=== PATIENT | female | born 1990 | race Caucasian/White ===

== ENCOUNTER → 2017-02-25 | Outpatient (CLI) | payer BC, OTHER ==
--- NOTE | 2017-02-25 13:48 | MAMMOGRAPHY REPORT ---
ULTRASOUND OF RIGHT BREAST: 02/25/2017 CLINICAL HISTORY: The patient reports a palpable lump in the right upper outer quadrant. She has a s ling family history of breast cancer, with her mother diagnosed at age 40. COMPARISON: Comparison is made to exams dated: 05/02/2014 ultrasound, 04/19/2012 consultation, and 04/05 ultrasound - [facility]. TECHNIQUE: Real-time targeted ultrasound of the right breast was performed. FINDINGS: Real-time, high resolution targeted ultrasound was performed of the area of the palpable l ump pointed out by the patient, in the right breast at 11:00, centered around 6 cm from the nipple. Normal dense fibroglandular tissue is seen in this region, which likely accounts for the palpable fin ding. Incidentally noted on ultrasound are multiple small subcentimeter round/oval anechoic benign c ysts scattered within the fibroglandular tissue. In the right breast at approximately 10:00, 5 cm fr om the nipple, there is a lobulated hypoechoic mass which measures 1.1 x 0.5 x 1.4 cm. This is likel y incidentally noted and likely represents a fibroadenoma or possibly a complicated cyst. The findin g is indeterminate and ultrasound guided core needle biopsy is recommended for further evaluation. IMPRESSION: ACR BI-RADS CATEGORY 4A: LOW SUSPICION FOR MALIGNANCY - FOLLOW-UP RECOMMENDED Dense fibroglandular tissue seen within the region of the palpable right 11:00 breast lump, which lik denise accounts for the palpable finding. Incidental 1.4 cm hypoechoic mass in the right breast at appr oximately 10:00, which is indeterminate and ultrasound-guided core needle biopsy is recommended for f urther evaluation. This may represent a fibroadenoma or less likely fibrocystic changes. Also recom mend clinical follow-up for the palpable abnormality. A phone call was made to the physician's office to confirm faxed results were received. The patient was verbally notified of the results. She tentatively scheduled the biopsy before leaving the depart ment. Blossom Kidd M.D. /:02/25/2017 10:35:31 Attending Technologist: Keaton STOUT([place])(M), [facility] Precise Winder: Blossom Kidd MD, [facility] letter sent: Abnormal 4/5 BI-RADS Code: ACR BI-RADS Category 4A: Low Suspicion For Malignancy
== END | disposition home or self-care (01) ==
LOC: C.MAMM 08:53
PROVIDERS: ATTEND Nurse Practitioner Adult Health
DX: N63 Unspecified lump in breast (principal); Z80.3 Family history of malignant neoplasm of breast

== ENCOUNTER → 2017-03-03 | Outpatient (CLI) | payer BC, OTHER ==
--- NOTE | 2017-03-03 13:13 | Discharge Instructions ---
Discharge Instructions Procedure Procedure Date: Mar 03, 2017. Reason for visit: Right Mass. Discharge Discharge Date: Mar 03, 2017. Discharge Diagnosis: status post breast biopsy Instructions Activity Recommendations: Additional Limitations (see below) Return to School/Work: no limitations Recommended Home Diet: No Limitations Provider Instructions: ACTIVITY RECOMMENDATIONS: * No lifting, pushing, pulling or exercising the affected side for three days. RETURN TO SCHOOL/WORK: * You may return to work/school after the procedure, but do not perform any strenuous activities for 24 to 48 hours. MEDICATIONS: * Tylenol (two 325 mg) every four to six hours if needed for mild pain (if not allergic to Tylenol). DIET: * Resume previous diet. SPECIAL CARE INSTRUCTIONS: * Keep biopsy site dry for 24 hours. May shower after 24 hours, but do not soak (bathe) incision. * May remove Tegaderm (plastic patch) tomorrow AFTER showering. * Leave the steri-strips on for one week. Allow the steri-strips to fall off by themselves. If not off after one week, you may remove them. You may place a Bandaid crosswise over the strips, if desired. * Apply ice 10 minutes on and 10 minutes off as needed. * Wear a bra at bedtime to sleep more comfortably for 2-3 days. * Your referring physician should have the results after approximately 5 to 7 business days. * Call for unusual bleeding, fever, drainage, etc or if you have any questions call during normal business hours or after hours call Dr Kidd, . FOLLOW UP VISIT: Follow-up with Referring Physician as scheduled. Allergies Coded Allergies: No Known Allergies (Unverified Allergy, Severe, NONE, 02/18/09) Abdias Kramer Recommendations: Call your doctor if: * Temperature above 101 degrees * Pain not relieved by pain medicine ordered * There is increased drainage or redness from any incision * You have any unanswered questions or concerns. Your Doctors Instructions noted above were prepared by provider Blossom Kidd. Patient Signature Section: Patient Instructions Signature Page Halle Combs Patient (or Guardian) Signature/Date: I have read and understand the instructions given to me by my caregivers. Caregiver/RN/Doctor Signature/Date: The above-named patient and/or guardian has received patient instructions on this date. + Original Patient Signature Page (only) stays with chart. Please make copy for patient.
--- NOTE | 2017-03-14 09:09 | MAMMOGRAPHY REPORT ---
ULTRASOUND GUIDED BIOPSY RIGHT BREAST: 03/03/2017 CLINICAL HISTORY: Right 10:00 breast mass. PATIENT CONSENT: The procedure, risks and benefits were discussed with the patient and informed writt en consent was obtained. A timeout was performed immediately prior to the procedure. PROCEDURE DESCRIPTION: With ultrasound guidance, aseptic technique, and lidocaine as the local anesth etic (1% lidocaine to anesthetize the skin and 1% lidocaine with epinephrine to anesthetize the deepe r tissues), the mass of concern in the right 10:00 breast was sampled 4 times with a 14-gauge Achieve biopsy needle. Immediately thereafter, with ultrasound guidance, aseptic technique, and lidocaine as the local anesthetic, a metallic localizer clip was placed centrally in the mass. Direct pressure was applied to the site immediately post procedure and hemostasis was achieved. The patient tolerat ed the procedure without complication. She was given wound care instructions. The specimens were sen t to pathology for analysis. COMPARISON: Comparison is made to exams dated: 02/25/2017 ultrasound, 05/02/2014 ultrasound, 04/19/2012 consultation, and 04/19/2012 ultrasound - [facility]. IMPRESSION: ULTRASOUND GUIDED BIOPSY Ultrasound-guided core needle biopsy of the right 10:00 breast mass, with clip placement. The patien t will receive pathology results from her referring provider. Blossom Kidd M.D. /:03/03/2017 13:17:57 Broadcast Designer: Arielle Sawant, [facility]
== END | disposition home or self-care (01) ==
LOC: C.MAMM 12:48
PROVIDERS: ATTEND Nurse Practitioner Adult Health
DX: N63 Unspecified lump in breast (principal); N64.89 Other specified disorders of breast